=== PATIENT | female | born 1960 ===

== ENCOUNTER 2017-01-19 22:03 | Emergency (ER) | payer MEDICAID, OTHER ==
[2017-01-19 22:03] VITALS: BMI 23.0
[2017-01-19 22:15] VITALS: BP 182/94; PULSE 89; RESP 16; O2SAT 98
[2017-01-19] MEDS ORDERED: Sodium Chloride 0.9% 1,000 ML IV STA (22:50)
[2017-01-19] MEDS ORDERED: Promethazine/Cod 6.25mg-10mg/5ml Syr UD PO STA (22:50)
[2017-01-19] MEDS ORDERED: Albuterol-Ipratrop 3 mg / 0.5 (3 ml) UD INH STA (22:52)
[2017-01-19] MEDS ORDERED: Promethazine/Cod 6.25mg-10mg/5ml Syr UD ONE (22:59)
[2017-01-19] MEDS ORDERED: Albuterol-Ipratrop 3 mg / 0.5 (3 ml) UD ONE (23:00)
--- NOTE | 2017-01-19 23:28 | ED PDOC ---
HPI: General Adult Time Seen by Provider: 01/19/17 22:17 Chief Complaint (Nursing): Headache Chief Complaint (Provider): cough, headache, vomiting, malaise History Per: Patient History/Exam Limitations: no limitations Onset/Duration Of Symptoms: Days (1) Have you had recent travel within the past 21 days to any of the following countries: [place], [place], [place] or [place]?: No Current Symptoms Are (Timing): Still Present Additional Complaint(s): 56yo female with PMHx including liver cirrhosis and HTN presents to the ED with c/o cough, headache, posttussive vomiting, malaise x 1 day. Patient also reports fever and chills. Patient states headache is frontal and states posttussive vomiting just contains phlegm. Denies chest pain, diarrhea. Past Medical History Reviewed: Historical Data, Nursing Documentation, Vital Signs Vital Signs: Last Vital Signs Temp 100.1 F H 01/20/17 01:24 Pulse 89 01/19/17 22:11 Resp 16 01/19/17 22:11 BP 182/94 H 01/19/17 22:11 Pulse Ox 98 01/19/17 23:36 - Medical History PMH: Anxiety, Depression, Gastritis (STOMACH ULCER), Gastrointestinal Ulcer, HTN Denies: HIV, Chronic Kidney Disease Other PMH: liver cirrhosis - Surgical History Surgical History: Cholecystectomy - Family History Family History: States: No Known Family Hx - Social History Current smoker - smoking cessation education provided: No Alcohol: None Drugs: Denies - Immunization History Hx Tetanus Toxoid Vaccination: No Hx Influenza Vaccination: Yes Hx Pneumococcal Vaccination: Yes - Home Medications Home Medications: Ambulatory Orders Medication Instructions Recorded oxyCODONE/Acetaminophen [Percocet 1 tab PO QID PRN #20 tab 10/18/16 5/325 mg Tab] Albuterol HFA [Ventolin HFA 90 1 - 2 puff IH Q6 PRN #1 inhaler 01/20/17 mcg/actuation (8 g)] Ondansetron ODT [Zofran ODT] 4 mg PO Q6 PRN #16 odt 01/20/17 Oseltamivir [Tamiflu] 75 mg PO BID #10 cap 01/20/17 Promethazine HCl/Codeine 5 ml PO Q6 PRN #6 oz 01/20/17 [Prometh-Codein 6.25-10 mg/5 ml] levoFLOXacin [Levaquin] 500 mg PO DAILY #10 tab 01/20/17 - Allergies Allergies/Adverse Reactions: Allergies Allergy/AdvReac Type Severity Reaction Status Date / Time No Known Allergies Allergy Verified 01/19/17 22:11 Review of Systems ROS Statement: Except As Marked, All Systems Reviewed And Found Negative Constitutional: Positive for: Fever, Chills, Malaise Cardiovascular: Negative for: Chest Pain Respiratory: Positive for: Cough Gastrointestinal: Positive for: Vomiting. Negative for: Diarrhea Neurological: Positive for: Headache Physical Exam - Reviewed Nursing Documentation Reviewed: Yes Vital Signs Reviewed: Yes - Physical Exam Appears: Positive for: Well, No Acute Distress, Uncomfortable Head Exam: Positive for: ATRAUMATIC, NORMAL INSPECTION, NORMOCEPHALIC Skin: Positive for: Normal Color, Warm, Dry Eye Exam: Positive for: Normal appearance, EOMI, PERRL ENT: Positive for: Other (bifrontal sinus tenderness, tacky mucous membranes ). Negative for: Pharyngeal Erythema, Tonsillar Exudate, Tonsillar Swelling Neck: Positive for: Normal, Painless ROM, Supple Cardiovascular/Chest: Positive for: Regular Rate, Rhythm. Negative for: Murmur , Tachycardia Respiratory: Positive for: Rhonchi (at the bases b/l ). Negative for: Wheezing , Respiratory Distress Gastrointestinal/Abdominal: Positive for: Normal Exam, Bowel Sounds, Soft. Negative for: Tenderness Back: Positive for: Normal Inspection. Negative for: L CVA Tenderness, R CVA Tenderness Extremity: Positive for: Normal ROM. Negative for: Deformity, Swelling Lymphatic: Positive for: Adenopathy (mild b/l cervical adenopathy ) Neurologic/Psych: Positive for: Alert, Oriented. Negative for: Motor/Sensory Deficits - Laboratory Results Result Diagrams: 01/19/17 22:54 01/19/17 22:54 - ECG O2 Sat by Pulse Oximetry: 98 Pulse Ox Interpretation: Normal (RA) Medical Decision Making Medical Decision Makin: Impression: 56yo female w/ flu-like symptoms and clinical sinusitis/bronchitis Plan: EKG Labs CXR duoneb 3ml INH, IVF, promethazine/codeine 10ml PO, Toradol 10mg IV, Zofran 4mg IV flu swab reassess 0234: CXR shows NAD. Labs reviewed, show no clinically significant abnormalities except mildly elevated liver function tests which patient states is known to her because of pre-existing diagnosis of liver cirrhosis. Patient reports significant improvement in symptoms after medications and is stable for d/c. Although flu swab is negative, patient's clinical presentation is strong enough to indicate treatment for flu-like illness in provider's opinion. Patient will also be treated for sinusitis/bronchitis with antibiotics. Patient stable for d/c. Dx: flu, sinusitis, bronchitis Improved F/U new PCP in 2 days Rx: levaquin, tamiflu, albuterol, promethazine/codeine, zofran Scribe Attestation: Documented by Marybeth Mcgraw acting as a scribe for Moshe Gary MD. Provider Scribe Attestation: All medical record entries made by the Scribe were at my direction and personally dictated by me. I have reviewed the chart and agree that the record accurately reflects my personal performance of the history, physical exam, medical decision making, and the department course for this patient. I have also personally directed, reviewed, and agree with the discharge instructions and disposition. Disposition - Clinical Impression Clinical Impression: Sinusitis, Bronchitis, Influenza - Patient ED Disposition Is Patient to be Admitted: No Counseled Patient/Family Regarding: Studies Performed, Diagnosis, Need For Followup, Rx Given - Disposition Disposition: Routine/Home Disposition Time: 02:34 Condition: IMPROVED Prescriptions: levoFLOXacin [Levaquin] 500 mg PO DAILY #10 tab Promethazine HCl/Codeine [Prometh-Codein 6.25-10 mg/5 ml] 5 ml PO Q6 PRN #6 oz PRN Reason: Cough Oseltamivir [Tamiflu] 75 mg PO BID #10 cap Albuterol HFA [Ventolin HFA 90 mcg/actuation (8 g)] 1 - 2 puff IH Q6 PRN #1 inhaler PRN Reason: Shortness Of Breath Ondansetron ODT [Zofran ODT] 4 mg PO Q6 PRN #16 odt PRN Reason: Nausea/Vomiting Instructions: Sinusitis (ED), Influenza (ED), Acute Bronchitis (ED)
[2017-01-19 23:57] LABS: BASO % 0.4 % (0.0-2.0); EOS % 0.7 % (0.0-4.0); HEMATOCRIT 39.5 % (34.0-47.0); LYMPH # 0.4 K/uL (1.0-4.3); MEAN CELL VOLUME 96.7 fl (81.0-99.0); MEAN CORPUSCULAR HEMOGLOBIN 32.4 pg (27.0-31.0); MEAN CORPUSCULAR HGB CONC 33.5 g/dL (33.0-37.0); MEAN PLATELET VOLUME 10.9 fl (7.2-11.7); MONO % 19.7 % (0.0-10.0); NEUT # 3.6 K/uL (1.8-7.0); NEUT % 71.2 % (50.0-75.0); PLATELET COUNT 70 K/uL (130-400); RED CELL DISTRIBUTION WIDTH 15.7 % (11.5-14.5); WHITE BLOOD COUNT 5.1 K/uL (4.8-10.8)
[2017-01-20 00:09] LABS: ALKALINE PHOSPHATASE 215 U/L (38-126); ALT/SGPT 67 U/L (9-52); AST/SGOT 111 U/L (14-36); BILIRUBIN,TOTAL 1.2 mg/dl (0.2-1.3); BLOOD UREA NITROGEN 7 mg/dl (7-17); CALCIUM 8.8 mg/dL (8.4-10.2); CARBON DIOXIDE 24 mmol/L (22-30); CHLORIDE 105 mmol/L (98-107); GFR AFRICAN-AMERICAN > 60; GLUCOSE,RANDOM 93 mg/dL (65-105); LIPASE 201 U/L (23-300); POTASSIUM 4.2 MMOL/L (3.6-5.0); SODIUM 142 mmol/l (132-148); TOTAL PROTEIN 7.4 G/DL (6.3-8.2)
[2017-01-20 00:24] LABS: ALB/GLOB RATIO 0.8 (1.0-2.1)
[2017-01-20 01:05] LABS: BASOPHIL 2 % (0-2); NEUTROPHIL 67 % (42-75); REACTIVE LYMPHOCYTES 4 % (0-0); TOTAL CELLS COUNTED 100
[2017-01-20 01:17] LABS: LARGE PLATELETS PRESENT
[2017-01-20 01:25] VITALS: TEMP 100.1
[2017-01-20 01:44] LABS: RBC URINE 6 /hpf (0-3); URINE BACTERIA RARE (<OCC); URINE BILIRUBIN NEGATIVE (NEGATIVE); URINE BLOOD MODERATE (NEGATIVE); URINE COLOR YELLOW (YELLOW); URINE GLUCOSE (UA) NEG (Normal); URINE KETONE NEGATIVE (NEGATIVE); URINE LEUKOCYTE ESTERASE NEG Leu/uL (Negative); URINE PROTEIN 30 mg/dL (NEGATIVE); URINE UROBILINOGEN 0.2-1.0 mg/dL (0.2-1.0); WBC URINE 1 /hpf (0-5)
--- NOTE | 2017-01-20 08:01 | CARD ---
APPROVED REPORT EKG Measurement Heart [id number] <Conclusion> Normal sinus rhythm Septal infarct, age undetermined Abnormal ECG
--- NOTE | 2017-01-20 08:40 | RAD ---
HISTORY: cough COMPARISON: 06/29/2015 FINDINGS: LUNGS: No focal airspace opacity. PLEURA: No significant pleural effusion identified, no pneumothorax apparent. CARDIOVASCULAR: Normal. OSSEOUS STRUCTURES: No significant abnormalities. VISUALIZED UPPER ABDOMEN: Normal. OTHER FINDINGS: Radiopaque opacity overlying the projection of the right shoulder. IMPRESSION: No focal airspace opacity.
== END 2017-01-20 05:05 | disposition home or self-care (01) ==
LOC: H.ER 22:03
DX: J11.1 Influenza due to unidentified influenza virus with other respiratory manifestations (principal); J40 Bronchitis, not specified as acute or chronic; J32.9 Chronic sinusitis, unspecified; I10 Essential (primary) hypertension; K74.60 Unspecified cirrhosis of liver; R05 Cough; R51 Headache

== ENCOUNTER 2017-07-14 11:21 | Emergency (ER) | payer OTHER ==
[2017-07-14 11:38] VITALS: BP 189/89; PULSE 57; RESP 20; TEMP 98.3; O2SAT 96; BMI 25.6
[2017-07-14] MEDS ORDERED: Iohexol 240 (50 ml) PO ONE (12:16)
--- NOTE | 2017-07-14 12:16 | ED PDOC ---
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 Reports taking Tramadol without significant relief of symptoms. Denies fever, calf pain , fall, or other complaints. PCP: none provided. Past Medical History Reviewed: Historical Data, Nursing Documentation, Vital Signs Vital Signs: Last Vital Signs Temp 98.3 F 07/14/17 11:37 Pulse 57 L 07/14/17 11:37 Resp 20 07/14/17 11:37 BP 189/89 H 07/14/17 11:37 Pulse Ox 96 07/14/17 11:37 - Medical History PMH: Anxiety, Depression, Gastritis (STOMACH ULCER), Gastrointestinal Ulcer, HTN Denies: HIV, Chronic Kidney Disease - Surgical History Surgical History: Cholecystectomy - Family History Family History: States: Unknown Family Hx - Social History Current smoker - smoking cessation education provided: No Ex-Smoker (has not smoked in the last 12 months): No Alcohol: None Drugs: Denies - Immunization History Hx Tetanus Toxoid Vaccination: No Hx Influenza Vaccination: Yes Hx Pneumococcal Vaccination: Yes - Home Medications Home Medications: Ambulatory Orders Medication Instructions Recorded oxyCODONE/Acetaminophen [Percocet 1 tab PO QID PRN #20 tab 10/18/16 5/325 mg Tab] Albuterol HFA [Ventolin HFA 90 1 - 2 puff IH Q6 PRN #1 inhaler 01/20/17 mcg/actuation (8 g)] Ondansetron ODT [Zofran ODT] 4 mg PO Q6 PRN #16 odt 01/20/17 Oseltamivir [Tamiflu] 75 mg PO BID #10 cap 01/20/17 Promethazine HCl/Codeine 5 ml PO Q6 PRN #6 oz 01/20/17 [Prometh-Codein 6.25-10 mg/5 ml] levoFLOXacin [Levaquin] 500 mg PO DAILY #10 tab 01/20/17 - Allergies Allergies/Adverse Reactions: Allergies Allergy/AdvReac Type Severity Reaction Status Date / Time No Known Allergies Allergy Verified 01/19/17 22:11 Review of Systems ROS Statement: Except As Marked, All Systems Reviewed And Found Negative Constitutional: Negative for: Fever Musculoskeletal: Positive for: Leg Pain (bilateral, area behind the knees). Negative for: Other (calf pain) Physical Exam - Reviewed Nursing Documentation Reviewed: Yes Vital Signs Reviewed: Yes - Physical Exam Appears: Positive for: Well, Non-toxic, No Acute Distress Head Exam: Positive for: ATRAUMATIC, NORMAL INSPECTION, NORMOCEPHALIC Skin: Positive for: Normal Color, Warm, Dry Eye Exam: Positive for: Normal appearance Neck: Positive for: Normal, Painless ROM, Supple Cardiovascular/Chest: Positive for: Regular Rate, Rhythm. Negative for: Murmur Respiratory: Positive for: Normal Breath Sounds. Negative for: Accessory Muscle Use, Respiratory Distress Extremity: Positive for: Normal ROM, Tenderness (area behind knees, bilateral). Negative for: Calf Tenderness (bilateral) Neurologic/Psych: Positive for: Alert, Oriented (x3) - ECG O2 Sat by Pulse Oximetry: 96 (RA) Pulse Ox Interpretation: Normal Disposition - Disposition Forms: [facility] (Colombian)
--- NOTE | 2017-07-14 12:20 | ED PDOC ---
HPI: Abdomen Time Seen by Provider: 07/14/17 12:05 Chief Complaint (Nursing): GI Problem Chief Complaint (Provider): Bilateral leg pain History Per: Patient History/Exam Limitations: no limitations Onset/Duration Of Symptoms: Other (1 month) Additional Complaint(s): Patient is a 57 yo female, PMH of HTN and Cirrhosis, presents to ED complaining of nausea and epigastric abdominal pain x 2 days. Also stating she feels weak and has loss of appetite. Past Medical History Reviewed: Nursing Documentation, Vital Signs Vital Signs: Last Vital Signs Temp 98.3 F 07/14/17 11:37 Pulse 57 L 07/14/17 11:37 Resp 20 07/14/17 11:37 BP 189/89 H 07/14/17 11:37 Pulse Ox 96 07/14/17 12:19 - Medical History PMH: Anxiety, Depression, Gastritis (STOMACH ULCER), Gastrointestinal Ulcer, HTN Denies: HIV, Chronic Kidney Disease - Surgical History Surgical History: Cholecystectomy - Family History Family History: States: Unknown Family Hx - Living Arrangements Living Arrangements: With Family - Social History Current smoker - smoking cessation education provided: No Ex-Smoker (has not smoked in the last 12 months): No Alcohol: None Drugs: Denies - Immunization History Hx Tetanus Toxoid Vaccination: No Hx Influenza Vaccination: Yes Hx Pneumococcal Vaccination: Yes - Allergies Allergies/Adverse Reactions: Allergies Allergy/AdvReac Type Severity Reaction Status Date / Time No Known Allergies Allergy Verified 01/19/17 22:11 Review of Systems ROS Statement: Except As Marked, All Systems Reviewed And Found Negative Gastrointestinal: Positive for: Abdominal Pain Physical Exam - Reviewed Nursing Documentation Reviewed: Yes Vital Signs Reviewed: Yes - Physical Exam Appears: Positive for: Well, Non-toxic, No Acute Distress Head Exam: Positive for: ATRAUMATIC, NORMAL INSPECTION, NORMOCEPHALIC Skin: Positive for: Normal Color, Warm, DRY Eye Exam: Positive for: EOMI, Normal appearance, PERRL ENT: Positive for: Normal ENT Inspection Neck: Positive for: Normal, Painless ROM Cardiovascular/Chest: Positive for: Regular Rate, Rhythm Respiratory: Positive for: CNT, Normal Breath Sounds Gastrointestinal/Abdominal: Positive for: Bowel Sounds, Soft, Tenderness ( epigastric) Back: Positive for: Normal Inspection Extremity: Positive for: Normal ROM Neurologic/Psych: Positive for: Alert, Oriented - Laboratory Results Result Diagrams: 07/14/17 12:30 07/14/17 12:30 - ECG O2 Sat by Pulse Oximetry: 96 (RA) Medical Decision Making Medical Decision Making: IV access established and treatment initiated with Pepcid, Zofran and Morphine On re-eval, Pt reports feeling improved CXR: NAd, as read by ANH CT Impression: Diffuse fatty infiltration of the liver with nodularity of the contour of the liver compatible with an element of cirrhosis. No grossly enhancing mass to suggest hepatocellular carcinoma. Recommend correlation with the alpha protein levels. Mild extrahepatic biliary dilatation compatible with post cholecystectomy state. All results discussed with Pt who demonstrated full understanding. Pt reports feeling improved on re-eval Stable for discharge, advised to follow up with PMD, return to ED with any concerns Disposition - Clinical Impression Clinical Impression: Gastritis - Patient ED Disposition Is Patient to be Admitted: No - Disposition Disposition: Routine/Home Disposition Time: 17:00 Condition: STABLE Forms: [facility] (Ecuadorean) - POA Present On Arrival: None
[2017-07-14] MEDS ORDERED: Iohexol 240 (50 ml) ONE (12:43)
[2017-07-14 12:49] LABS: RBC URINE 19 /hpf (0-3); URINE BACTERIA RARE (<OCC); URINE BILIRUBIN NEGATIVE (NEGATIVE); URINE BLOOD MODERATE (NEGATIVE); URINE COLOR YELLOW (YELLOW); URINE GLUCOSE (UA) NEG (Normal); URINE KETONE NEGATIVE (NEGATIVE); URINE LEUKOCYTE ESTERASE NEG Leu/uL (Negative); URINE PROTEIN 100 mg/dL (NEGATIVE); URINE UROBILINOGEN 0.2-1.0 mg/dL (0.2-1.0); WBC URINE 1 /hpf (0-5)
[2017-07-14 13:08] LABS: ALB/GLOB RATIO 0.9 (1.0-2.1); ALCOHOL SERUM < 10 mg/dl (0-10); ALKALINE PHOSPHATASE 180 U/L (38-126); ALT/SGPT 105 U/L (9-52); AMYLASE 171 U/L (30-110); AST/SGOT 200 U/L (14-36); BILIRUBIN,TOTAL 2.8 mg/dl (0.2-1.3); BLOOD UREA NITROGEN 7 mg/dl (7-17); CALCIUM 9.4 mg/dL (8.4-10.2); CARBON DIOXIDE 28 mmol/L (22-30); CHLORIDE 105 mmol/L (98-107); GFR AFRICAN-AMERICAN > 60; GLUCOSE,RANDOM 105 mg/dL (65-105); LIPASE 98 U/L (23-300); POTASSIUM 4.4 MMOL/L (3.6-5.0); SODIUM 143 mmol/l (132-148); TOTAL PROTEIN 8.7 G/DL (6.3-8.2)
[2017-07-14 13:22] LABS: BASO # 0.1 K/uL (0.0-0.2); BASO % 1.4 % (0.0-2.0); EOS # 0.1 K/uL (0.0-0.7); EOS % 1.9 % (0.0-4.0); HEMATOCRIT 43.8 % (34.0-47.0); LYMPH # 1.1 K/uL (1.0-4.3); LYMPH % 22.6 % (20.0-40.0); MEAN CELL VOLUME 101.1 fl (81.0-99.0); MEAN CORPUSCULAR HEMOGLOBIN 34.4 pg (27.0-31.0); MEAN CORPUSCULAR HGB CONC 34.1 g/dL (33.0-37.0); MONO # 0.8 K/uL (0.0-0.8); MONO % 17.6 % (0.0-10.0); NEUT # 2.6 K/uL (1.8-7.0); NEUT % 56.5 % (50.0-75.0); NRBC % 0.2 % (0.0-0.0); RED CELL DISTRIBUTION WIDTH 15.2 % (11.5-14.5); WHITE BLOOD COUNT 4.7 K/uL (4.8-10.8)
[2017-07-14] MEDS ORDERED: Iohexol 300 100 ML IJ ONE (14:31)
[2017-07-14] MEDS ORDERED: Sodium Chloride 0.9% 50 ML IV ONE (14:32)
--- NOTE | 2017-07-14 15:25 | CT ---
PROCEDURE: CT Abdomen and Pelvis with contrast HISTORY: epigastric abdominal pain, hx of cirrhosis COMPARISON: 2009. TECHNIQUE: Contrast dose: 100 cc of Omnipaque 300 Radiation dose: Total exam DLP = 507 mGy-cm. This CT exam was performed using one or more of the following dose reduction techniques: Automated exposure control, adjustment of the mA and/or kV according to patient size, and/or use of iterative reconstruction technique. FINDINGS: LOWER THORAX: Unremarkable. LIVER: Diffuse fatty infiltration of the liver with nodularity of the contour of the liver compatible with an element of cirrhosis. No grossly enhancing mass to suggest hepatocellular carcinoma. Recommend correlation with the alpha protein levels. GALLBLADDER AND BILE DUCTS: Mild extrahepatic biliary dilatation compatible with post cholecystectomy state. PANCREAS: Unremarkable. No gross lesion or ductal dilatation. SPLEEN: Unremarkable. ADRENALS: Unremarkable. No mass. KIDNEYS AND URETERS: Unremarkable. No hydronephrosis. No solid mass. VASCULATURE: Unremarkable. No aortic aneurysm. BOWEL: Unremarkable. No obstruction. No gross mural thickening. APPENDIX: Normal appendix. PERITONEUM: Unremarkable. No free fluid. No free air. LYMPH NODES: Unremarkable. No enlarged lymph nodes. BLADDER: Unremarkable. REPRODUCTIVE: Unremarkable. BONES: No acute fracture. OTHER FINDINGS: None. IMPRESSION: Diffuse fatty infiltration of the liver with nodularity of the contour of the liver compatible with an element of cirrhosis. No grossly enhancing mass to suggest hepatocellular carcinoma. Recommend correlation with the alpha protein levels. Mild extrahepatic biliary dilatation compatible with post cholecystectomy state.
--- NOTE | 2017-07-14 15:35 | RAD ---
PROCEDURE: CHEST RADIOGRAPH, 1 VIEW HISTORY: abdominal pain COMPARISON: None available. FINDINGS: LUNGS: Clear. PLEURA: No pneumothorax or pleural fluid seen. CARDIOVASCULAR: Normal. OSSEOUS STRUCTURES: No significant abnormalities. VISUALIZED UPPER ABDOMEN: Normal. OTHER FINDINGS: None. IMPRESSION: No active disease.
[2017-07-14] MEDS ORDERED: Alum-Mag Hydrox-Simethicone Susp (30 mL) PO ONE (17:18)
--- NOTE | 2017-07-15 08:58 | CARD ---
APPROVED REPORT EKG Measurement Heart [id number] OR [id number] <Conclusion> Sinus bradycardia Minimal voltage criteria for LVH, may be normal variant Poor progression of R waves V1 to V3 Prolonged QT Abnormal ECG
== END 2017-07-14 17:45 | disposition home or self-care (01) ==
LOC: H.ER 11:21
DX: K29.70 Gastritis, unspecified, without bleeding (principal); F32.9 Major depressive disorder, single episode, unspecified; F41.9 Anxiety disorder, unspecified; I10 Essential (primary) hypertension; K74.60 Unspecified cirrhosis of liver; K76.0 Fatty (change of) liver, not elsewhere classified
CPT/HCPCS: 71010; 74177; 80053; 80320; 81003; 82150; 83690; 84484; 85025; 93005; 96374; 96375; 99283; J2270; J2405; Q9966; Q9967

== ENCOUNTER 2017-07-14 18:46 | Observation (INO) | payer OTHER ==
[2017-07-14 18:46] VITALS: BMI 25.6
--- NOTE | 2017-07-14 19:27 | ED PDOC ---
HPI: Abdomen Time Seen by Provider: 07/14/17 18:58 Chief Complaint (Nursing): Abdominal Pain Chief Complaint (Provider): Abdominal Pain History Per: Patient Additional Complaint(s): Patient is a 57 yo female, PMH of HTN and Cirrhosis, presents to ED complaining of returning nausea, vomiting and abdominal pain. Also stating she feels weak and has loss of appetite. Pt seen and evaluated by junior technical writer earlier today for the same and had labs and CT done. Pt left feeling well after receiving Zofran, Morphine, Pepcid and GI cocktail. Pt reports she did not even get home before nausea and vomiting started again Past Medical History Reviewed: Historical Data, Nursing Documentation, Vital Signs Vital Signs: Last Vital Signs Temp 97.1 F L 07/14/17 18:51 Pulse 51 L 07/14/17 18:51 Resp 18 07/14/17 18:51 BP 204/105 H 07/14/17 18:51 Pulse Ox 95 07/14/17 18:51 - Medical History PMH: Anxiety, Depression, Gastritis (STOMACH ULCER), Gastrointestinal Ulcer, HTN Denies: HIV, Chronic Kidney Disease - Surgical History Surgical History: Cholecystectomy - Family History Family History: States: Unknown Family Hx - Living Arrangements Living Arrangements: With Family - Social History Current smoker - smoking cessation education provided: No Alcohol: Other (Former alcoholic, currently a social drinker) Drugs: Denies - Immunization History Hx Tetanus Toxoid Vaccination: No Hx Influenza Vaccination: Yes Hx Pneumococcal Vaccination: Yes - Home Medications Home Medications: Ambulatory Orders Medication Instructions Recorded Famotidine [Pepcid] 20 mg PO DAILY #20 tab 07/14/17 - Allergies Allergies/Adverse Reactions: Allergies Allergy/AdvReac Type Severity Reaction Status Date / Time No Known Allergies Allergy Verified 07/14/17 18:51 Review of Systems ROS Statement: Except As Marked, All Systems Reviewed And Found Negative Gastrointestinal: Positive for: Nausea, Vomiting, Abdominal Pain Physical Exam - Reviewed Nursing Documentation Reviewed: Yes Vital Signs Reviewed: Yes - Physical Exam Appears: Positive for: Well, Non-toxic, No Acute Distress, Uncomfortable Head Exam: Positive for: ATRAUMATIC, NORMAL INSPECTION, NORMOCEPHALIC Skin: Positive for: Normal Color, Warm, DRY Eye Exam: Positive for: EOMI, Normal appearance, PERRL ENT: Positive for: Normal ENT Inspection Neck: Positive for: Normal, Painless ROM Cardiovascular/Chest: Positive for: Regular Rate, Rhythm Respiratory: Positive for: CNT, Normal Breath Sounds Gastrointestinal/Abdominal: Positive for: Bowel Sounds, Soft, Tenderness ( epigastric) Back: Positive for: Normal Inspection Extremity: Positive for: Normal ROM Neurologic/Psych: Positive for: Alert, Oriented - ECG O2 Sat by Pulse Oximetry: 95 Medical Decision Making Medical Decision Making: IV access established and treatment initiated with IVF, Reglan and morphine at this time. Case discussed with ED MD, Dr. Araujo, who agreed with admission at this time for intractable abdominal pain, nausea and vomiting. Pt is followed by family practice team, Case discussed with Resident on-call, Dr. Travis. Arrangements made for admission Disposition - Clinical Impression Clinical Impression: Intractable abdominal pain, Intractable vomiting - Patient ED Disposition Is Patient to be Admitted: Yes - Disposition Disposition Time: 19:26 Condition: STABLE Forms: [facility] (Lebanese) - POA Present On Arrival: None
[2017-07-14] MEDS ORDERED: Sodium Chloride 0.9% 1,000 ML IV STA (19:39)
--- NOTE | 2017-07-14 20:30 | CP.PCM.HP ---
History of Present Illness - History of Present Illness History of Present Illness: CC/HPI: Pt. seen in the E.D. Pt. noticed to be dry heaving during exam. Pt. reports that she has been vomiting and dry heaving for past 2 days. Pt. states no diarrhea. Pt. denies any recent travel, sick contacts, drug use, food poisoning. Pt. states she has had 1 to 2 episodes of non-bloody non-billious vomiting each day for past two days. Pt. states she is unable to hold down any food or liquids. Pt. states mostly her symptoms are dry heaving. Pt. also states episodes of vomiting are associated with abdominal pain described as generalized, dull, crampy, non-radiating. Pt. also states she has a headache that started this morning is genralized, pounding, associated with lightheadedness but no changes in vision nor is it associated with fever, chills , trauma, fall, or injury. Pt. does state taking all of her medications this morning. 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 denies any chest pain, fever, chills, hemoptysis, hematemesis, melena, or hematochezia. Allergies: NKDA Home Meds: Spironolocatone 25mg Propranolol 40mg Vitamin B-12 PMD: Dr. Hadley at [facility] E.D. Course I.V. fluids I.V. Zofran I.V. Reglan I.V. Morphine I.V. Enalapril C.T. Head C.T. Abdomen CXR Present on Admission - Present on Admission Any Indicators Present on Admission: No History of DVT/PE: No History of Uncontrolled Diabetes: No Urinary Catheter: No Decubitus Ulcer Present: No Review of Systems - Review of Systems Review of Systems: See HPI Past Patient History - Past Medical History & Family History Past Medical History?: Yes - Past Social History Smoking Status: Light Smoker < 10 Cigarettes Daily - CARDIAC Hx Hypertension: Yes - PULMONARY Hx Respiratory Disorders: No - NEUROLOGICAL Hx Neurological Disorder: No - HEENT Hx HEENT Problems: No - RENAL Hx Chronic Kidney Disease: No - ENDOCRINE/METABOLIC Hx Endocrine Disorders: No - HEMATOLOGICAL/ONCOLOGICAL Hx Human Immunodeficiency Virus (HIV): No - INTEGUMENTARY Hx Dermatological Problems: No - MUSCULOSKELETAL/RHEUMATOLOGICAL Hx Musculoskeletal Disorders: Yes Hx Falls: Yes - GASTROINTESTINAL Hx Gastritis: Yes (STOMACH ULCER) - GENITOURINARY/GYNECOLOGICAL Hx Genitourinary Disorders: No - PSYCHIATRIC Hx Anxiety: Yes Hx Depression: Yes Hx Substance Use: No - SURGICAL HISTORY Hx Cholecystectomy: Yes - ANESTHESIA Hx Anesthesia: Yes Hx Anesthesia Reactions: No Hx Malignant Hyperthermia: No Meds Allergies/Adverse Reactions: Allergies Allergy/AdvReac Type Severity Reaction Status Date / Time No Known Allergies Allergy Verified 07/14/17 18:51 Physical Exam - Constitutional Appears: In Acute Distress - Head Exam Head Exam: ATRAUMATIC, NORMOCEPHALIC - Eye Exam Eye Exam: Scleral icterus (Mild conjuntial jaundice noted) - ENT Exam ENT Exam: Mucous Membranes Dry - Neck Exam Neck exam: Positive for: Full Rom - Respiratory Exam Respiratory Exam: Clear to Auscultation Bilateral. absent: Accessory Muscle Use - Cardiovascular Exam Cardiovascular Exam: REGULAR RHYTHM, +S1, +S2 - GI/Abdominal Exam GI & Abdominal Exam: Tenderness (Generalzied ) - Extremities Exam Extremities exam: Positive for: normal inspection, pedal pulses present. Negative for: calf tenderness - Neurological Exam Neurological exam: Alert, Oriented x3 - Psychiatric Exam Psychiatric exam: Normal Affect, Normal Mood Results - Vital Signs Recent Vital Signs: Last Vital Signs Temp 97.1 F L 07/14/17 18:51 Pulse 51 L 07/14/17 18:51 Resp 18 07/14/17 18:51 BP 204/105 H 07/14/17 18:51 Pulse Ox 95 07/14/17 19:29 Assessment & Plan - Assessment and Plan (Free Text) Assessment: 57 y.o. female admitted for intractable vomiting Intractable vomiting of unclear etiology most likely multi-factorial CT WNL but does show increased nodularity of liver and fatty infiltration and cholecystectomy state UDS positive for Cocaine and Opiods 1- NPO for now 2- I.V. fluids N.S. at 100cc 3- Zofran 4mg IVP PRN Abdominal pain 1- Will repeat CBC 2- Will monitor for fever 3- Will repeat LFT 4- Will obtain AFP level due to increased nodularity of liver and elevated LFT' s 5- Hep C serology reviewed and WNL, will obtain HepBsurface antigen Headache secondary to Cocaine use- UDS positive for cocaine 1- Lisinopril 1.25mg IVP 2- CT Head WNL 3- Will resume Home meds Spironolactone 25mg and Propranolol 40mg 4- Troponin negative 5- No acute changes on EKG Liver cirrhosis secondary to ETOH abuse 1- Will get AFP 2- Will get Coags 3- Will get CMP 4- Hep C serology reviewed and WNL, will obtain HepBsurface antige Bradycardia- 51 to 57 of unclear etiology possibly due to chronic Cocaine abuse 1- Troponin negative 2- No acute changes on EKG 3- Repeat EKG in the a.m. 4- Will get Mag, Phos in the a.m. DVT prophylaxis 1- SCD for now Diet 1- NPO except meds for now 2- Advance diet as tolerated in the a.m.
[2017-07-14] MEDS ORDERED: Enalaprilat 2.5 MG/2 ML IVP STA (21:23)
[2017-07-14] MEDS ORDERED: EnalaprilAT 1.25 mg/ml Inj ONE (21:26)
--- NOTE | 2017-07-14 22:45 | CT ---
EXAM: CT Head Without Intravenous Contrast CLINICAL HISTORY: 57 years old, female; Signs and symptoms; Dizziness; Additional info: Dizziness headache TECHNIQUE: Axial computed tomography images of the head/brain without intravenous contrast. All CT scans at this facility use one or more dose reduction techniques, viz.: automated exposure control; ma/kV adjustment per patient size (including targeted exams where dose is matched to indication; i.e. head); or iterative reconstruction technique. Coronal and sagittal reformatted images were created and reviewed. COMPARISON: CT - HEAD W/O CONTRAST 06/29/2015 7:02:42 PM FINDINGS: Brain: Mild atrophy. No intracranial hemorrhage. No mass. Few scattered foci of decreased attenuation within periventricular/subcortical white matter. No definite edema. Ventricles: No hydrocephalus. Bones/joints: No acute fracture. Soft tissues: Unremarkable. Vasculature: Atherosclerotic disease of intracranial arteries. Sinuses: No acute sinusitis. Mastoid air cells: No mastoid effusion. Orbits: Unremarkable as visualized. IMPRESSION: 1. Nonspecific white matter changes. Acute infarction may be CT occult within first 24 hours. If a focal deficit persists, consider followup CT or MRI for further evaluation. 2. Incidental/non-acute findings are described above.
[2017-07-14] MEDS ORDERED: Sodium Chloride 0.9% 1,000 ML IV SCH (23:00)
[2017-07-14] MEDS: Sodium Chloride 0.9% 1,000 ML IV SCH (23:19)
[2017-07-15 06:52] LABS: HEMATOCRIT 42.1 % (34.0-47.0); MEAN CELL VOLUME 102.1 fl (81.0-99.0); MEAN CORPUSCULAR HEMOGLOBIN 34.1 pg (27.0-31.0); MEAN CORPUSCULAR HGB CONC 33.4 g/dL (33.0-37.0); RED CELL DISTRIBUTION WIDTH 15.1 % (11.5-14.5); WHITE BLOOD COUNT 6.8 K/uL (4.8-10.8)
[2017-07-15 07:09] LABS: PARTIAL THROMBOPLASTIN TIME 36.3 Seconds (25.6-37.1)
[2017-07-15 07:11] LABS: ALB/GLOB RATIO 0.8 (1.0-2.1); ALKALINE PHOSPHATASE 127 U/L (38-126); ALT/SGPT 91 U/L (9-52); AST/SGOT 163 U/L (14-36); BILIRUBIN,TOTAL 3.2 mg/dl (0.2-1.3); BLOOD UREA NITROGEN 12 mg/dl (7-17); CALCIUM 8.4 mg/dL (8.4-10.2); CARBON DIOXIDE 25 mmol/L (22-30); CHLORIDE 107 mmol/L (98-107); GFR AFRICAN-AMERICAN > 60; GLUCOSE,RANDOM 109 mg/dL (65-105); MAGNESIUM 1.6 MG/DL (1.6-2.3); PHOSPHOROUS 4.1 mg/dl (2.5-4.5); POTASSIUM 3.9 MMOL/L (3.6-5.0); SODIUM 142 mmol/l (132-148); TOTAL PROTEIN 7.6 G/DL (6.3-8.2)
--- NOTE | 2017-07-15 08:36 | CARD ---
APPROVED REPORT EKG Measurement Heart [id number] MD [id number] <Conclusion> Sinus bradycardia Septal infarct, age undetermined Prolonged QT Abnormal ECG
--- NOTE | 2017-07-15 08:43 | CARD ---
APPROVED REPORT EKG Measurement Heart [id number] MD [id number] <Conclusion> Unusual P axis, possible ectopic atrial bradycardia Minimal voltage criteria for LVH, may be normal variant Septal infarct, age undetermined Abnormal ECG
[2017-07-15] MEDS: Sodium Chloride 0.9% 1,000 ML IV SCH (09:32)
[2017-07-15 15:44] VITALS: BP 142/67; PULSE 68; RESP 17; TEMP 98.4; O2SAT 94
--- NOTE | 2017-07-15 16:25 | CP.PCM.DIS ---
Provider - Provider Date of Admission: 07/14/17 19:27 Attending physician: Grace Lopez MD Primary care physician: Dr Hadley at [facility]. Time Spent in preparation of Discharge (in minutes): 25 Hospital Course - Lab Results Lab Results: Most Recent Lab Values WBC 6.8 K/uL (4.8-10.8) 07/15/17 05:45 RBC 4.13 Mil/uL (3.80-5.20) 07/15/17 05:45 Hgb 14.1 g/dL (12.0-16.0) 07/15/17 05:45 Hct 42.1 % (34.0-47.0) 07/15/17 05:45 MCV 102.1 fl (81.0-99.0) H 07/15/17 05:45 MCH 34.1 pg (27.0-31.0) H 07/15/17 05:45 MCHC 33.4 g/dL (33.0-37.0) 07/15/17 05:45 RDW 15.1 % (11.5-14.5) H 07/15/17 05:45 Plt Count 79 K/uL (130-400) L 07/15/17 05:45 PT 15.6 Seconds (9.8-13.1) H 07/15/17 05:45 INR 1.5 (0.9-1.2) H 07/15/17 05:45 APTT 36.3 Seconds (25.6-37.1) 07/15/17 05:45 Sodium 142 mmol/l (132-148) 07/15/17 05:45 Potassium 3.9 MMOL/L (3.6-5.0) 07/15/17 05:45 Chloride 107 mmol/L (98-107) 07/15/17 05:45 Carbon Dioxide 25 mmol/L (22-30) 07/15/17 05:45 Anion Gap 14 (10-20) 07/15/17 05:45 BUN 12 mg/dl (7-17) 07/15/17 05:45 Creatinine 0.6 mg/dL (0.7-1.2) L 07/15/17 05:45 Est GFR ( Amer) > 60 07/15/17 05:45 Est GFR (Non-Af Amer) > 60 07/15/17 05:45 Random Glucose 109 mg/dL (65-105) H 07/15/17 05:45 Calcium 8.4 mg/dL (8.4-10.2) 07/15/17 05:45 Phosphorus 4.1 mg/dl (2.5-4.5) 07/15/17 05:45 Magnesium 1.6 MG/DL (1.6-2.3) 07/15/17 05:45 Total Bilirubin 3.2 mg/dl (0.2-1.3) H 07/15/17 05:45 AST 163 U/L (14-36) H 07/15/17 05:45 ALT 91 U/L (9-52) H 07/15/17 05:45 Alkaline Phosphatase 127 U/L (38-126) H D 07/15/17 05:45 Total Protein 7.6 G/DL (6.3-8.2) 07/15/17 05:45 Albumin 3.4 g/dL (3.5-5.0) L 07/15/17 05:45 Globulin 4.2 gm/dL (2.2-3.9) H 07/15/17 05:45 Albumin/Globulin Ratio 0.8 (1.0-2.1) L 07/15/17 05:45 Alpha Fetoprotein 5.6 IU/mL (0.0-7.22) 07/15/17 05:45 Urine Opiates Screen Positive (NEGATIVE) H 07/14/17 20:42 Urine Methadone Screen Negative (NEGATIVE) 07/14/17 20:42 Ur Barbiturates Screen Negative (NEGATIVE) 07/14/17 20:42 Ur Phencyclidine Scrn Negative (NEGATIVE) 07/14/17 20:42 Ur Amphetamines Screen Negative (NEGATIVE) 07/14/17 20:42 U Benzodiazepines Scrn Negative (NEGATIVE) 07/14/17 20:42 U Oth Cocaine Metabols Positive (NEGATIVE) H 07/14/17 20:42 U Cannabinoids Screen Positive (NEGATIVE) H 07/14/17 20:42 Alcohol, Quantitative < 10 mg/dl (0-10) 07/15/17 08:15 - Hospital Course Hospital Course: 57 y/o female with PMH of HTN and Cirrhosis secondary to alcoholism admitted for intractable vomiting and diaphoresis. -Urine toxicology positive for cocaine, cannabinoids and opiates. CT of Abdomen , head CT and EKG were unremarkable, Alpha fetoprotein was 5.6-low. ALT and AST elevated but were trending down. Head CT and EKG were unremarkable. -Pt received: Zofran, Morphine, Pepcid and IV fluids while 1 day hospitalization. -Pt advanced form liquid to regular diet with good PO tolerance. -Pt was discharged stable, NO new medication added, and instructed to continue home medications: #Spironolocatone 25mg #Propranolol 40mg -Pt was extensively counseled on alcohol and drug abuse. Pt replied good understanding. Discharge Exam - Head Exam Head Exam: ATRAUMATIC, NORMOCEPHALIC Discharge Plan - Follow Up Plan Condition: STABLE Disposition: HOME/ ROUTINE Instructions: Cocaine Abuse (DC), Abuse of Alcohol (DC), Abdominal Pain (ED) Additional Instructions: -F/u with PMD Dr. Hadley at [facility] within 2 weeks for evaluation and management of HTN and alcoholic hepatitis. -Continue with home medications. -Follow a healthy soft diet: banana, rice, apple sauce, plain yogurt and toasts for a few days. -Return to ER if fever, diaphoresis, chest pain, SOB, abdominal pain, nausea or diarrhea. -Please keep in mind our counseling on drug interactions.
== END 2017-07-15 17:59 | disposition home or self-care (01) ==
LOC: H.ER 18:46 → H.ERHOLD 19:27 → H.MEDSURG1 23:11
PROVIDERS: ADMIT Family Medicine Geriatric Medicine; ATTEND Family Medicine Geriatric Medicine
DX: R10.9 Unspecified abdominal pain (principal); R11.2 Nausea with vomiting, unspecified; F10.10 Alcohol abuse, uncomplicated; F14.90 Cocaine use, unspecified, uncomplicated; I10 Essential (primary) hypertension; K70.30 Alcoholic cirrhosis of liver without ascites; K76.0 Fatty (change of) liver, not elsewhere classified; Z87.11 Personal history of peptic ulcer disease; K29.70 Gastritis, unspecified, without bleeding; F17.210 Nicotine dependence, cigarettes, uncomplicated; F10.20 Alcohol dependence, uncomplicated; F32.9 Major depressive disorder, single episode, unspecified; F41.9 Anxiety disorder, unspecified; R00.1 Bradycardia, unspecified; R51 Headache
CPT/HCPCS: 36415; 70450; 80053; 80320; 80324; 80345; 80346; 80349; 80353; 80358; 80361; 82105; 83735; 83992; 84100; 85027; 85610; 85730; 87340; 93005; 96361; 96374; 96375; 99283; G0378; J2270; J2405; J2765; J7040

== ENCOUNTER 2018-05-12 06:56 | Emergency (ER) | payer OTHER ==
[2018-05-12 07:35] VITALS: BMI 25.7
[2018-05-12 07:38] VITALS: RESP 18; TEMP 99.1
--- NOTE | 2018-05-12 08:18 | ED PDOC ---
Lower Extremity Pain/Injury Time Seen by Provider: 05/12/18 07:09 Chief Complaint (Nursing): Lower Extremity Problem/Injury Chief Complaint (Provider): Right Foot Pain History Per: Patient History/Exam Limitations: no limitations Onset/Duration Of Symptoms: Days (x2) Current Symptoms Are (Timing): Still Present Additional Complaint(s): 58 year old female with a past medical history of hypertension presents to the emergency department complaining of right ankle and foot pain which began around yesterday. Patient states that the pain began yesterday after she left work and began walking. Reports that she cannot bear weight. Denies calf pain, knee pain ,leg pain shortness of breath, chest pain. No numbness, tingles. Past Medical History Reviewed: Historical Data, Nursing Documentation, Vital Signs Vital Signs: Last Vital Signs Temp 99.1 F 05/12/18 07:33 Pulse 76 05/12/18 07:33 Resp 18 05/12/18 07:33 BP 196/106 H 05/12/18 07:33 Pulse Ox 97 05/12/18 07:33 - Medical History PMH: Anxiety, Depression, HTN Denies: HIV, Chronic Kidney Disease, Sexually Transmitted Disease - Surgical History Surgical History: Cholecystectomy - Family History Family History: States: Unknown Family Hx - Social History Current smoker - smoking cessation education provided: Yes (Light Smoker < 10 Cigarettes Daily) Alcohol: Other (has a beer daily) Drugs: Other - Immunization History Hx Tetanus Toxoid Vaccination: No Hx Influenza Vaccination: Yes Hx Pneumococcal Vaccination: Yes - Home Medications Home Medications: Ambulatory Orders Medication Instructions Recorded Propranolol [Inderal] 40 mg PO ONCE tab 07/15/17 Spironolactone [Aldactone] 25 mg PO DAILY tab 07/15/17 Ibuprofen [Motrin] 600 mg PO TID 7 Days tab 05/12/18 traMADol [Ultram] 50 mg PO BID PRN 3 Days tab 05/12/18 - Allergies Allergies/Adverse Reactions: Allergies Allergy/AdvReac Type Severity Reaction Status Date / Time No Known Allergies Allergy Verified 07/14/17 18:51 Review of Systems Constitutional: Negative for: Weakness Cardiovascular: Negative for: Chest Pain Respiratory: Negative for: Shortness of Breath Musculoskeletal: Positive for: Foot Pain (right). Negative for: Neck Pain, Shoulder Pain, Leg Pain Skin: Negative for: Rash Neurological: Negative for: Weakness, Numbness, Dizziness Physical Exam - Reviewed Nursing Documentation Reviewed: Yes Vital Signs Reviewed: Yes - Physical Exam Appears: Positive for: Non-toxic, No Acute Distress Skin: Positive for: Normal Color, Warm, Dry. Negative for: Rash Cardiovascular/Chest: Positive for: Regular Rate, Rhythm Respiratory: Positive for: Normal Breath Sounds Pulses-Dorsalis Pedis (L): 2+ Pulses-Dorsalis Pedis (R): 2+ Pulses-Post. Tibialis (L): 2+ Pulses-Post. Tibialis (R): 2+ Back: Positive for: Normal Inspection. Negative for: L CVA Tenderness, R CVA Tenderness Extremity: Positive for: Tenderness (diffuse tenderness to dorsum of foot; tenderness to ankle lateral), Swelling (swelling to dorsal area of foot; no erythema; no ecchymosis), Other (Sensations intact). Negative for: Calf Tenderness, Deformity Neurologic/Psych: Positive for: Alert, Oriented - ECG O2 Sat by Pulse Oximetry: 97 (RA) Pulse Ox Interpretation: Normal - Progress ED Course And Treament: 1108: Podiatry saw x-rays and pt. They want pt. to be dc. They will splint pt. and give crutches. No weight on foot. Fu in clinic with Dr. Lemus Friday. Possibility delayed stress fx which is not evident currently. Medical Decision Making Medical Decision Makin Initial Impression 58 year old female presenting with right foot and ankle jaclyn Initial Plan: * Motrin Tab 600 mg PO * RAD Right ankle * RAD right foot * Reevaluation Documented by Delia Palma acting as a scribe for Refugio Mcginnis MD. All medical record entries made by the Scribe were at my direction and personally dictated by me. I have reviewed the chart and agree that the record accurately reflects my personal performance of the history, physical exam, medical decision making, and the department course for this patient. I have also personally directed, reviewed, and agree with the discharge instructions and disposition. Disposition - Clinical Impression Clinical Impression: Foot pain - Patient ED Disposition Is Patient to be Admitted: No Counseled Patient/Family Regarding: Studies Performed, Diagnosis, Need For Followup, Rx Given - Disposition Referrals: Podiatry Clinic [Outside] - 05/18/18 Disposition: Routine/Home Disposition Time: 11:10 Condition: STABLE Additional Instructions: No weight on right foot. Return if not better in 3 days. See the podiatry clinic Friday. Prescriptions: Ibuprofen [Motrin] 600 mg PO TID 7 Days tab traMADol [Ultram] 50 mg PO BID PRN 3 Days tab PRN Reason: Pain, Moderate (4-7) Instructions: Muscle and Bone Pain (DC) Forms: [facility] ED School/Work Excuse, [facility] (Palestinian)
--- NOTE | 2018-05-12 11:59 | CP.PCM.CON ---
History of Present Illness - History of Present Illness History of Present Illness: Podiatry consult note for attending Dr. Baldwin 58 y/o female with PHMx of HTN seen and evaluated for Right foot pain. Patient states the pain started yesterday and has worsened since. Patient denies any trauma, fall, or object falling on her foot. Patient described the pain as sharp , and stinging. 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 Patient reports the pain has mildly improved after the pain medication in the ED. Patient denies any other pedal complaints. PMHx: HTN PSH: no ALL: NKDA SHx: denies alcohol use Review of Systems - Review of Systems All systems: reviewed and no additional remarkable complaints except Review of Systems: As per HPI Past Patient History - Past Medical History & Family History Past Medical History?: Yes - Past Social History Alcohol: Other (has a beer daily) Drugs: Other - CARDIAC Hx Hypertension: Yes - PULMONARY Hx Respiratory Disorders: No - NEUROLOGICAL Hx Neurological Disorder: No - HEENT Hx HEENT Problems: No - RENAL Hx Chronic Kidney Disease: No - ENDOCRINE/METABOLIC Hx Endocrine Disorders: No - HEMATOLOGICAL/ONCOLOGICAL Hx Human Immunodeficiency Virus (HIV): No - INTEGUMENTARY Hx Dermatological Problems: No - MUSCULOSKELETAL/RHEUMATOLOGICAL Hx Musculoskeletal Disorders: Yes Hx Falls: Yes - GASTROINTESTINAL Hx Gastritis: Yes (STOMACH ULCER) Hx Pancreatitis: Yes - GENITOURINARY/GYNECOLOGICAL Hx Sexually Transmitted Disorders: No - PSYCHIATRIC Hx Anxiety: Yes Hx Depression: Yes - SURGICAL HISTORY Hx Cholecystectomy: Yes - ANESTHESIA Hx Anesthesia: Yes Hx Anesthesia Reactions: No Hx Malignant Hyperthermia: No Meds Home Medications: Home Medication List Medication Instructions Recorded Confirmed Type Ibuprofen [Motrin] 600 mg PO TID 7 Days tab 05/12/18 Rx traMADol [Ultram] 50 mg PO BID PRN 3 Days tab 05/12/18 Rx Allergies/Adverse Reactions: Allergies Allergy/AdvReac Type Severity Reaction Status Date / Time No Known Allergies Allergy Verified 07/14/17 18:51 Physical Exam - Constitutional Appears: Well, Non-toxic, No Acute Distress - Head Exam Head Exam: ATRAUMATIC, NORMOCEPHALIC - Extremities Exam Additional comments: Bilateral Lower Extremity Exam: VASC: DP and PT 2/4 bilaterally, CFT less than 3 seconds x 10, TG warm to warm bilaterally; no edema noted NEURO: Epicritic and protective sensation intact DERM: no open lesions, no wounds, no IDM, no clinical signs of infection, no edema noted ORTHO: diffuse pain on palpation to the dorso-lateral aspect of the right foot, pain on deep palpation to submet 3, minimal pain with lateral compression, no pain with range of motion of the digits, no pain with ankle range of motion, no pain with posterior calf squeeze - Neurological Exam Neurological exam: Alert, Oriented x3 - Psychiatric Exam Psychiatric exam: Normal Affect, Normal Mood Results - Vital Signs Recent Vital Signs: Last Vital Signs Temp 99.1 F 05/12/18 07:33 Pulse 76 05/12/18 07:33 Resp 18 05/12/18 07:33 BP 196/106 H 05/12/18 07:33 Pulse Ox 97 05/12/18 11:13 Assessment & Plan - Assessment and Plan (Free Text) Assessment: 58 y/o female with PHMx of HTN seen and evaluated for Right foot pain. Plan: Patient seen and evaluated for attending Dr. Baldwin Patient plan discussed with attending Dr. Baldwin Patient foot and ankle x-rays were reviewed- no fractures or dislocations were noted Patient explained possible etiology foot pain vs. stress fracture Patient placed in a Stringer compression and provided with Surgical shoe and Crutches Patient instructed to NWB to the right lower extremity, and to ice and elevate the right leg Patient will follow up in Podiatry clinic on Friday with Dr. Baldwin Thank you for the podiatry consult - Date & Time Date: 05/12/18 Time: 12:11
[2018-05-12 12:03] VITALS: BP 155/83; PULSE 72; O2SAT 95
--- NOTE | 2018-05-12 12:11 | RAD ---
Date of service: 05/12/2018 PROCEDURE: Right Ankle Radiographs. HISTORY: pain COMPARISON: None FINDINGS: BONES: Normal. No fracture. JOINTS: Normal. No osteoarthritis. Ankle mortise maintained. Talar dome intact SOFT TISSUES: Normal. OTHER FINDINGS: None. IMPRESSION: Normal right ankle radiographs.
--- NOTE | 2018-05-12 12:14 | RAD ---
Date of service: 05/12/2018 PROCEDURE: Right Foot Radiographs. HISTORY: pain COMPARISON: Correlation made with concurrent radiographs of the ankle FINDINGS: BONES: Normal. No fracture. JOINTS: Normal. SOFT TISSUES: Normal. OTHER FINDINGS: None. IMPRESSION: Normal right foot radiographs.
== END 2018-05-12 11:55 | disposition home or self-care (01) ==
LOC: H.ER 06:56
DX: M79.671 Pain in right foot (principal); F17.210 Nicotine dependence, cigarettes, uncomplicated; Z86.59 Personal history of other mental and behavioral disorders; I10 Essential (primary) hypertension; Z87.19 Personal history of other diseases of the digestive system